=== PATIENT | female | born 1960 | race Caucasian/White ===

== ENCOUNTER → 2017-06-06 | Outpatient (CLI) | payer OTHER ==
[~2017-06-06] VITALS: Ht 165.1 cm; Wt 68.0 kg
[~2017-06-06] MED LIST: AUBAGIO7 MG PO; BIOTIN10000 MC1 PO; BLACK COHOSH40 M1 PO; CITRACAL + D E1 EACH PO; CYMBALTA60 MG PO; EVENING PRIMRO1 EACH PO; FOLIC ACID0.4 MG PO; MULTIPLE VITAM1 EACH PO; PERCOCET 5/31 TABLET PO; PREMARIN VAGI42.5 GM VG; PROMETHAZINE HC25 M1 PO; VAGIFEM10 MCG VG
== END | disposition home or self-care (01) ==
LOC: AMB 09:00
PROC: 0DBL8ZX Excision of Transverse Colon, Via Natural or Artificial Opening Endoscopic, Diagnostic (ICD-10-PCS; principal; 2017-06-06)
DX: Z12.11 Encounter for screening for malignant neoplasm of colon (principal); D12.3 Benign neoplasm of transverse colon; K64.8 Other hemorrhoids; K21.9 Gastro-esophageal reflux disease without esophagitis; G35 Multiple sclerosis; F32.9 Major depressive disorder, single episode, unspecified; F41.9 Anxiety disorder, unspecified; H91.90 Unspecified hearing loss, unspecified ear; Z87.891 Personal history of nicotine dependence; Z83.3 Family history of diabetes mellitus; Z82.49 Family history of ischemic heart disease and other diseases of the circulatory system
CPT/HCPCS: 88305; 93005; J2250